=== PATIENT | male | born 1940 | race Caucasian/White ===

== ENCOUNTER 2018-11-23 13:48 | Emergency (ER) | payer MEDICARE, OTHER ==
[2018-11-23 14:11] VITALS: BP 112/66
--- NOTE | 2018-11-23 15:07 | UC ---
Back Pain HPI - HPI Summary HPI Summary: 78yo man with Parkinson's disease and mild dementia who fell in the bathroom at 7 am. Fall was unwitnessed, but his heard him fall and arrived shortly thereafter. Small bathroom and he and his believe that he tripped over a towel. Was alert when she arrived at the site, and she pulled him out of the bathroom. Called daughter and son-in-law for assistance, and needed help to get to his feet, but could ambulate. He has pain in the low thoracic and high lumbar spines, along with pain to the right flank. Voiding normally, no jayden hematuria. He has 2 small laceration and ecchymoses on the right upper forearm. Came for assessment because 1.5 hyears ago he had a fracture after a fall which went un noticed for a couple of days. Started on donepezil just [address] Coronel, denies any side effects at this time. - History of Current Complaint Chief Complaint: UCBackPain Stated Complaint: S/P FALL, BACK PAIN Time Seen by Provider: 11/23/18 14:43 Hx Obtained From: Patient, Family/Associate Account Executive - here with his . Onset/Duration: Sudden Onset, Lasting Hours Timing: Constant Severity Initially: Moderate Severity Currently: Moderate Pain Intensity: 7 Back Pain: Is Diffuse Character: Aching Aggravating Factor(s): Movement, Bending, Walking Alleviating Factor(s): Rest, Cold - has been using ice packs regularly today Associated Signs And Symptoms: Positive: Bruising - on right forearm - Risk Factors AAA Risk Factors: Negative TAD Risk Factors: Negative Cauda Equina Risk Factors: Negative Epidural Abscess Risk Factors: Negative - Allergies/Home Medications Allergies/Adverse Reactions: Allergies Allergy/AdvReac Type Severity Reaction Status Date / Time adalimumab [From Humira] Allergy Rash Verified 11/23/18 14:35 aspirin Allergy Unknown Verified 11/23/18 14:35 Reaction Details Carbonic Anhydrase Inhibitors Allergy Unknown Verified 11/23/18 14:35 Reaction Details celecoxib Allergy Unknown Verified 11/23/18 14:35 Reaction Details mercaptopurine Allergy Decreased Verified 11/23/18 14:35 RBC Production NSAIDS (Non-Steroidal Allergy Unknown Verified 11/23/18 14:35 Anti-Inflamma Reaction Details Penicillins Allergy Rash Verified 11/23/18 14:35 saccharin Allergy Unknown Verified 11/23/18 14:35 Reaction Details Sulfa (Sulfonamide Allergy Hives Verified 11/23/18 14:35 Antibiotics) Thiazides Allergy Unknown Verified 11/23/18 14:35 Reaction Details Cyclamate and Derivatives Allergy Unknown Uncoded 11/23/18 14:35 Reaction Details Home Medications: Home Medications Ascorbic Acid TAB* [Vitamin C TAB*] 1,000 mg PO DAILY 11/23/18 [History Confirmed 11/23/18] B2/Vits A,C,E/Lut/Zeaxanth/Min [Icaps Tablet] 1 each PO DAILY 11/23/18 [History Confirmed 11/23/18] Budesonide [Budesonide ER] 9 mg PO DAILY 11/23/18 [History Confirmed 11/23/18] Carbidopa/Levodop 25/100 MG(*) [Sinemet 25/100 TAB(*)] 1 tab PO BEDTIME [History Confirmed 11/23/18] Carbidopa/Levodopa [Carbidopa-Levodopa 25-100 Tab] 1.5 each PO TID 11/23/18 [ History Confirmed 11/23/18] Cyanocobalamin (Vitamin B-12) [Physicians Ez Use B-12 Co] 1,000 mcg IM Q14D 07/03 [History Confirmed 11/23/18] Donepezil TAB* [Aricept 5 MG TAB*] 5 mg PO DAILY 11/23/18 [History Confirmed 07/03] Folic Acid 5 mg PO DAILY 11/23/18 [History Confirmed 11/23/18] Gabapentin 300 mg PO BEDTIME 11/23/18 [History Confirmed 11/23/18] Mesalamine CAP(NF) [Pentasa(NF)] 1,000 mg PO QID 11/23/18 [History Confirmed 07/03] Mirabegron [Myrbetriq] 50 mg PO DAILY 11/23/18 [History Confirmed 11/23/18] PARoxetine HCl [Paxil] 10 mg PO DAILY 11/23/18 [History Confirmed 11/23/18] Potassium Chloride 30 meq PO DAILY 11/23/18 [History Confirmed 11/23/18] Solifenacin Succinate [Vesicare] 5 mg PO QPM 11/23/18 [History Confirmed 04/11/ 19] PMH/Surg Hx/FS Hx/Imm Hx Previously Healthy: No GI/ History: Other - Crohn's colitis Neurological History: Dementia, Other - Parkinson's disease - Surgical History Surgical History: Yes Surgery Procedure, Year, and Place: SEVERAL BOWEL RESECTIONS DUE TO CROHNS DISEASE; BOTH HIP REPLACEMENTS; Rt SHOULDER; HERNIA REPAIRS, fractured elbow - Family History Known Family History: Positive: Non-Contributory - Social History Occupation: Retired Lives: With Family Alcohol Use: None Substance Use Type: None Smoking Status (MU): Former Smoker When Did the Patient Quit Smoking/Using Tobacco: 1994 Review of Systems All Other Systems Reviewed And Are Negative: Yes Eyes: Negative: Blurred Vision, Diplopia ENT: Positive: Negative Respiratory: Negative: Shortness Of Breath, Cough Cardiovascular: Negative: Chest Pain Gastrointestinal: Negative: Abdominal Pain Genitourinary: Negative: Dysuria, Hematuria, Frequency Motor: Positive: Decreased ROM - in lumbar spine Musculoskeletal: Positive: Arthralgia, Myalgia Psychological: Positive: Negative Physical Exam Triage Information Reviewed: Yes Appearance: Ill-Appearing - looks chronically unwell with Parkinsonian facies. Alert, answers questions slowly, appropriately Vital Signs: Initial Vital Signs Temp 97.9 F 11/23/18 13:59 Pulse 93 11/23/18 13:59 Resp 24 11/23/18 13:59 BP 112/66 11/23/18 13:59 Pulse Ox 97 11/23/18 13:59 Eyes: Positive: Conjunctiva Clear ENT: Positive: Pharynx normal Neck: Positive: Supple, Nontender, No Lymphadenopathy Respiratory: Positive: Lungs clear, Normal breath sounds Cardiovascular: Positive: RRR, No Murmur Musculoskeletal: Positive: Strength Intact Neurological Exam: Other - No pronator drift. Neurological: Positive: Alert, Muscle Tone Normal Skin Exam: Other - right forearm with diffuse area of ecchymosis inferior to elbow approx 10 x 8 cm area, zig zag laceration 2.5 cm in length. Steristrips used to approximate the margins. Back Pain Course/Dx - Course Course Of Treatment: Continue ice and acetaminophen as needed for control of pain. Steristrips and dressing applied to right forearm laceration. - Differential Dx/Diagnosis Differential Diagnosis/HQI/PQRI: Fracture - compression fracture, Strain, Sprain , Other - contusion right lower back. Provider Diagnosis: Contusion of right side of back, Laceration of forearm, right Discharge - Sign-Out/Discharge Documenting (check all that apply): Patient Departure All imaging exams completed and their final reports reviewed: Yes - Discharge Plan Condition: Stable Disposition: HOME Patient Education Materials: Contusion in Adults (ED), Steristrips (ED) Referrals: Paula Simpson MD [Primary Care Provider] - Additional Instructions: Continue ice to the area of impact on the back, and use acetaminophen as needed for control of pain. Follow up with Dr. Heath if you have ongoing pain in the low back. Allow the steristrips to peel away as the laceration on the forearm heals. - Billing Disposition and Condition Condition: STABLE Disposition: Home
== END 2018-11-23 16:08 | disposition home or self-care (01) ==
LOC: UCCORT 13:48
DX: S30.0XXA Contusion of lower back and pelvis, initial encounter (principal); S51.811A Laceration without foreign body of right forearm, initial encounter; W18.30XA Fall on same level, unspecified, initial encounter; Y92.002 Bathroom of unspecified non-institutional (private) residence as the place of occurrence of the external cause; M85.88 Other specified disorders of bone density and structure, other site; M51.34 Other intervertebral disc degeneration, thoracic region; M47.814 Spondylosis without myelopathy or radiculopathy, thoracic region; M51.36 Other intervertebral disc degeneration, lumbar region; M47.816 Spondylosis without myelopathy or radiculopathy, lumbar region; G20 Parkinson's disease; F02.80 Dementia in other diseases classified elsewhere, unspecified severity, without behavioral disturbance, psychotic disturbance, mood disturbance, and anxiety; Z96.643 Presence of artificial hip joint, bilateral; Z96.611 Presence of right artificial shoulder joint; Z88.6 Allergy status to analgesic agent; Z88.0 Allergy status to penicillin; Z88.2 Allergy status to sulfonamides; Z88.8 Allergy status to other drugs, medicaments and biological substances; Z87.891 Personal history of nicotine dependence
CPT/HCPCS: 72070; 72100; 81003; 99212; G0463